=== PATIENT | female | born 1975 | race Caucasian/White ===

== ENCOUNTER 2023-03-02 17:55 | Emergency (ER) | payer MEDICAID | END 2023-03-02 19:32 | disposition left against medical advice (07) | LOC: JD.ED 17:55 → EEVIPCON 17:55 → JD.ED 19:32 | DX: S05.02XA Injury of conjunctiva and corneal abrasion without foreign body, left eye, initial encounter (principal); S60.512A Abrasion of left hand, initial encounter; S00.31XA Abrasion of nose, initial encounter; R45.851 Suicidal ideations; F17.210 Nicotine dependence, cigarettes, uncomplicated; Z88.0 Allergy status to penicillin; Y04.0XXA Assault by unarmed brawl or fight, initial encounter; Y92.009 Unspecified place in unspecified non-institutional (private) residence as the place of occurrence of the external cause | CPT/HCPCS: 99284 ==